=== PATIENT | female | born 1975 | race Caucasian/White ===

== ENCOUNTER 2022-12-20 12:20 | Outpatient (CLI) | payer BC, SELFPAY ==
--- NOTE | 2022-12-20 14:01 | W.ANESCHARGE ---
Anesthesia Charges Start Date/Time Anesthesia Start Date: 12/20/22 Anesthesia Start Time: 13:20 Stop Date/Time Anesthesia Stop Date: 12/20/22 Anesthesia Stop Time: 13:58
== END 2022-12-20 12:21 | disposition home or self-care (01) ==
LOC: OP CLINIC 12:22
PROVIDERS: PCP Family Medicine; Visit Provider Internal Medicine Gastroenterology
DX: Z12.11 Encounter for screening for malignant neoplasm of colon (principal); K63.5 Polyp of colon; K51.50 Left sided colitis without complications; Z86.010 Personal history of colon polyps
CPT/HCPCS: 45380; 45385; 811; 88342; J2704